=== PATIENT | female | born 1970 | race Two or more races ===

== ENCOUNTER 2016-11-11 17:11 | Emergency (ER) | payer MEDICAID ==
[~2016-11-11] VITALS: Ht 162.6 cm; Wt 56.7 kg
[2016-11-11 17:50] VITALS: BP 124/87
--- NOTE | 2016-11-11 17:50 | Emergency Room Report ---
History of Present Illness General Chief Complaint: Upper Respiratory Illness Source: Patient Present Illness HPI Patient is a 45-year-old female who presented after increased cough for the past 4 days. The patient reported having initially subjective fever. Patient was started on a Z-Vinnie. The patient finished 3 days. Patient had increased nonproductive cough. Patient was noted to have gradual onset of symptoms. The patient reported having prior episodes of bronchitis. She denies being a smoker. Allergies: Coded Allergies: SULFA (SULFONAMIDE ANTIBIOTICS) (Verified Allergy, Unknown, 11/11/16) Patient History Past Medical History: see triage record Last Menstrual Period: 3-30 Now: No Reviewed Nursing Documentation: PMH: Agreed, PSxH: Agreed Nursing Documentation-PMH Past Medical History: No Stated History Review of Systems All Other Systems: negative except mentioned in HPI Physical Exam Vital Signs Date Time Temp Pulse Resp B/P Pulse Ox O2 Delivery O2 Flow Rate FiO2 11/11/16 17:27 97.9 77 18 124/87 99 Room Air General Appearance: well appearing, no apparent distress, alert, GCS 15 Head: normocephalic, atraumatic ENT: hearing grossly normal, normal voice Neck: full range of motion, supple Respiratory: no respiratory distress, speaking full sentences Cardiovascular #1: normal peripheral pulses, regular rate, rhythm, no edema Gastrointestinal: non tender, soft, no mass, no organomegaly Musculoskeletal: back normal, digits/nails normal, no calf tenderness Neurologic: normal inspection, alert, oriented x3, normal gait Psychiatric: mood/affect normal Skin: no rash Medical Decision Making Diagnostic Impression: Primary Impression: Upper respiratory infection ER Course This presented for cough.Differential diagnosis included but was not limited to bronchitis, pneumonia, pulmonary embolism, pericarditis, asthma, foreign body. Patient's benign exam and does not appear to require any further imaging or laboratory testing at this time. Patient appears to have upper respiratory infection. The patient is advised to follow up with primary care doctor in 1-2 days. Patient is advised to return if any worsening condition or if any changes in status that are concerning. Last Vital Signs Date Time Temp Pulse Resp B/P Pulse Ox O2 Delivery O2 Flow Rate FiO2 11/11/16 17:27 97.9 77 18 124/87 99 Room Air Status: improved Disposition: HOME, SELF-CARE Condition: Stable Patient Instructions: Upper Respiratory Infection, Adult Additional Instructions: use over the counter cough syrup such as Zarbee's or Linda's natural cough syrup. Luis Alfredo Fitzpatrick Nov 11, 2016 17:50
== END 2016-11-11 17:50 | disposition home or self-care (01) ==
LOC: EMR 17:43
DX: J06.9 Acute upper respiratory infection, unspecified (principal); Z88.2 Allergy status to sulfonamides
CPT/HCPCS: 99282

== ENCOUNTER 2017-02-24 15:26 | Emergency (ER) | payer MEDICAID, OTHER ==
[~2017-02-24] VITALS: Ht 165.1 cm; Wt 56.7 kg
--- NOTE | 2017-02-24 16:26 | Emergency Room Report ---
History of Present Illness General Chief Complaint: General Complaint Source: Patient Present Illness HPI 46-year-old female presents to the emergency department complaining of deformity and the nail of the second toe nail of the right and left foot x several months. Denies pain. Patient reports itchy rash about the cuticle area of the feet bilaterally. Eyes erythema, blisters, lesions. Patient states that her roommate is being treated for toe nail infection with topical solution and she is requesting the same medication. Denies CP, Palpitations, LOC, AMS, dizziness, Changes in Vision, Sensation, paresthesias, or a sudden severe headache. Allergies: Coded Allergies: SULFA (SULFONAMIDE ANTIBIOTICS) (Verified Allergy, Unknown, 11/11/16) Patient History Past Medical History: see triage record Past Surgical History: none Pertinent Family History: none Now: No Immunizations: UTD Reviewed Nursing Documentation: PMH: Agreed, PSxH: Agreed Nursing Documentation-PMH Past Medical History: No Stated History Review of Systems All Other Systems: negative except mentioned in HPI Physical Exam Vital Signs Date Time Temp Pulse Resp B/P Pulse Ox O2 Delivery O2 Flow Rate FiO2 02/24/17 15:47 97.9 54 20 109/69 99 Room Air Sp02 EP Interpretation: reviewed, normal General Appearance: no apparent distress, alert, GCS 15, non-toxic Head: normocephalic, atraumatic Eyes: bilateral eye PERRL, bilateral eye normal inspection ENT: hearing grossly normal, normal pharynx, no angioedema, normal voice Neck: full range of motion, supple/symm/no masses Respiratory: lungs clear, normal breath sounds, speaking full sentences Cardiovascular #1: regular rate, rhythm, no edema Musculoskeletal: back normal, gait/station normal, normal range of motion, non- tender Neurologic: alert, oriented x3, responsive, motor strength/tone normal, sensory intact, speech normal Psychiatric: judgement/insight normal, memory normal, mood/affect normal Skin: normal color, warm/dry, well hydrated, rash - dry scaly rash between the digits of the bilateral feet, the nails of the 2nd toes bilaterally are brittle , yellow in color, opaque and have ridges. no evidence of secondary bacterial infection. Lymphatic: no adenopathy Medical Decision Making PA Attestation Dr. Choi is my supervising Physician whom patient management has been discussed with. Diagnostic Impression: Primary Impression: Tinea unguium ER Course 46-year-old female presents to the emergency department complaining of deformity and the nail of the second toe nail of the right and left foot x several months. Denies pain. Patient reports itchy rash about the cuticle area of the feet bilaterally. Eyes erythema, blisters, lesions. Patient states that her roommate is being treated for toe nail infection with topical solution and she is requesting the same medication. Denies CP, Palpitations, LOC, AMS, dizziness, Changes in Vision, Sensation, paresthesias, or a sudden severe headache. Ddx considered but are not limited to paronychia, eponychia, fracture, nail avulsion, nail bed injury, eczema, tinea Vital signs: are WNL, pt. is afebrile H&PE are most consistent with tinea unguium of the 2nd toes bilaterally. ORDERS: none required at this time, the diagnosis is clinical ED INTERVENTIONS: None required at this time. -d/w pt. that tinea unguium requires extended tx with Terbinafine which she needs to be rx'd by PCP who can monitor LFT's, d/w pt. that topical treatment has very low cure rate, but will write her an rx as requested. I do not suspect an emergent condition at this time. with current presentation pt. is stable for close outpatient follow up. D/w pt. to return to ED with worsening or new symptoms. DISCHARGE: At this time pt. is stable for d/c to home. Will provide printed patient care instructions, and any necessary prescriptions. Care plan and follow up instructions have been discussed with the patient prior to discharge. Last Vital Signs Date Time Temp Pulse Resp B/P Pulse Ox O2 Delivery O2 Flow Rate FiO2 02/24/17 15:47 97.9 54 20 109/69 99 Room Air Disposition: HOME, SELF-CARE Condition: Stable Scripts Clotrimazole (CLOTRIMAZOLE) 30 Ml Solution 1 APPLIC TP BID, #30 ML Prov: Jewell Benjamin 02/24/17 Referrals: [facility]ERR[facility] (PCP) Patient Instructions: Medical Screening Exam Additional Instructions: Take medications as directed. Follow up with a Primary Care Provider in 3-5 days, even if your symptoms have resolved. --Please review list of primary care clinics, if you do not already have a primary care provider Return sooner to ED if new symptoms occur, or current symptoms become worse. - Please note that this Emergency Department Report was dictated using [employer] hand technology software, occasionally this can lead to erroneous entry secondary to interpretation by the dictation equipment. Jewell Benjamin Feb 24, 2017 16:26
[2017-02-24] MEDS ORDERED: CLOTRIMAZOLE30 ML TP (16:29)
[2017-02-24 16:36] VITALS: BP 109/69
[2017-02-24 16:38] VITALS: BP 109/69
== END 2017-02-24 16:39 | disposition home or self-care (01) ==
LOC: EMR 16:06
DX: B35.1 Tinea unguium (principal); Z88.2 Allergy status to sulfonamides
CPT/HCPCS: 99283